=== PATIENT | female | born 1975 ===

== ENCOUNTER 2016-11-13 13:35 | Observation (INO) | payer MEDICAID ==
[2016-11-13 13:56] VITALS: BMI 29.1
[2016-11-13] MEDS ORDERED: Sodium Chloride 0.9% 1,000 ML IV STA (14:33)
[2016-11-13] MEDS ORDERED: Morphine 2 mg/ml ISec IVP STA (14:35)
[2016-11-13 14:57] LABS: URINE BILIRUBIN NEGATIVE (NEGATIVE); URINE BLOOD MODERATE (NEGATIVE); URINE GLUCOSE (UA) NEGATIVE (NEGATIVE); URINE KETONE NEGATIVE (NEGATIVE); URINE LEUKOCYTE ESTERASE NEGATIVE Leu/uL (NEGATIVE); URINE PROTEIN NEGATIVE mg/dL (<30 mg/dL); URINE UROBILINOGEN 0.2 E.U./dL (<1 E.U./dL)
--- NOTE | 2016-11-13 14:59 | ED PDOC ---
Arrival/HPI - General Chief Complaint: Abdominal Pain Time Seen by Provider: 11/13/16 14:07 Historian: Patient - History of Present Illness Narrative History of Present Illness (Text): 11/13/16 14:24 Vani Ornelas is a 41 year old female, whose past medical history includes kidney stones, ovarian cysts, cholecystitis, and tubal ligation, who presents to the emergency department complaining of worsening abdominal pain and left-sided flank pain for 3 days. Patient states that she began to vomit three days ago which resolved until yesterday more frequently. Patient also notes that she began to experience diarrhea 2 days ago and feels pressure in her abdomen while urinating dark colored urine with an odor. At present, most of the Patient's symptoms have resolved but her abdominal and right-sided flank pain remains. Patient denies any fever, chills, chest pain, shortness of breath , neck pain, headache, dizziness, or any other complaints. LMP ws 2 weeks ago. PMD: None Time/Duration: < week Symptom Onset: Gradual Symptom Course: Worsening Severity Level: Mild Activities at Onset: Light Context: Home Past Medical History - Provider Review Nursing Documentation Reviewed: Yes - Infectious Disease Hx of Infectious Diseases: None - Tetanus Immunization Tetanus Immunization: Unknown - Cardiac Hx Cardiac Disorders: Yes Hx Angina: Yes (once, was given sublingual nitro x2 which helped her, EKG normal .) - Pulmonary Hx Respiratory Disorders: Yes Hx Asthma: Yes - Neurological Hx Neurological Disorder: No - HEENT Hx HEENT Disorder: No - Renal Hx Renal Disorder: Yes Hx Kidney Stones: Yes - Endocrine/Metabolic Hx Endocrine Disorders: No - Hematological/Oncological Hx Blood Disorders: Yes Hx Cancer: Yes (stage I cervial cancer - 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 _ cervical 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 ) Other/Comment: Does not appear to be cervical CA but dysplasia - Integumentary Hx Dermatological Disorder: No Hx Basal Cell Carcinoma: No - Musculoskeletal/Rheumatological Hx Musculoskeletal Disorders: No Hx Falls: No - Gastrointestinal Hx Gastrointestinal Disorders: No - Genitourinary/Gynecological Hx Genitourinary Disorders: Yes Other/Comment: ovarian cyst HX - CAT scan done this admission - Psychiatric Hx Psychophysiologic Disorder: Yes Hx Depression: Yes Hx Substance Use: No - Surgical History Hx Cholecystectomy: Yes (2006) Hx Tubal Ligation: Yes - Anesthesia Hx Anesthesia: Yes Hx Anesthesia Reactions: No - Suicidal Assessment Feels Threatened In Home Enviroment: No Family/Social History - Physician Review Nursing Documentation Reviewed: Yes Family/Social History: No Known Family HX Smoking Status: Never Smoked Hx Alcohol Use: No Hx Substance Use: No Hx Substance Use Treatment: No Allergies/Home Meds Allergies/Adverse Reactions: Allergies carisoprodol [From Soma] Allergy (Verified 11/13/16 13:57) ANAPHYLAXIS "swelling and throat closes" hydrocodone bitartrate [From Vicodin] Allergy (Verified 11/13/16 13:57) REDNESS Benadryl [from Soma] Allergy (Uncoded 11/13/16 13:57) RASH Sudafed [from Soma] Allergy (Uncoded 11/13/16 13:57) RASH Review of Systems - Physician Review All systems were reviewed & negative as marked: Yes - Review of Systems Constitutional: absent: Fevers, Night Sweats Eyes: absent: Vision Changes ENT: absent: Hearing Changes Respiratory: absent: SOB, Cough Cardiovascular: absent: Chest Pain Gastrointestinal: Abdominal Pain, Diarrhea, Nausea, Vomiting Genitourinary Female: Urine Output Changes Musculoskeletal: Back Pain Skin: absent: Rash, Pruritis Neurological: absent: Headache, Dizziness Endocrine: absent: Diaphoresis Hemo/Lymphatic: absent: Easy Bleeding Psychiatric: absent: Depression Physical Exam Vital Signs Reviewed: Yes Vital Signs Temp Pulse Resp BP Pulse Ox 11/13/16 17:46 98.7 F 61 18 123/76 99 11/13/16 13:57 98.8 F 79 16 125/86 99 Temperature: Afebrile Blood Pressure: Normal Pulse: Regular Respiratory Rate: Normal Appearance: Positive for: Well-Appearing, Non-Toxic, Uncomfortable (due to pain) Pain Distress: Mild Mental Status: Positive for: Alert and Oriented X 3 - Systems Exam Head: Present: Atraumatic, Normocephalic Pupils: Present: PERRL Conjunctiva: Present: Normal Mouth: Present: Moist Mucous Membranes Pharnyx: Present: Normal. No: ERYTHEMA, EXUDATE Neck: Present: Normal Range of Motion Respiratory/Chest: Present: Clear to Auscultation, Good Air Exchange. No: Respiratory Distress, Accessory Muscle Use Cardiovascular: Present: Regular Rate and Rhythm, Normal S1, S2. No: Murmurs Abdomen: Present: Tenderness (LLQ and LUQ tender to palpation ) Back: Present: CVA Tenderness (left-sided) Upper Extremity: Present: Normal Inspection. No: Cyanosis, Edema Lower Extremity: Present: Normal Inspection. No: Edema Neurological: Present: GCS=15, CN II-XII Intact, Speech Normal Skin: Present: Warm, Dry, Normal Color. No: Rashes Psychiatric: Present: Alert, Oriented x 3, Normal Insight, Normal Concentration Medical Decision Making ED Course and Treatment: 11/13/16 14:24 Impression: 41 year old female complaining of worsening abdominal pain and right-sided flank pain with associated vomiting for 3 days and diarrhea for 2 days. Differential Diagnosis included but are not limited to: Kidney stones vs. Pyelonephritis vs. Gastroenteritis vs. Colitis vs. Pancreatitis Plan: -- Abdomen and Pelvis CT w/o contrast -- Labs -- Pepcid, Toradol, Morphine, Zofran and IV Fluids -- Reassess and disposition Prior Visits: Notes and results from previous visits were reviewed. Patient last seen in the ED on 04/16/16 for increasing lower abdominal pain with radiation to her back for four days. Patient was discharged home. Progress Notes: 11/13/16 18:[address]: Creator : Dania Cui MD FINDINGS: There is limited evaluation of the solid organs without the administration of IV contrast. LOWER THORAX:No visible consolidation, pleural effusion, or pneumothorax. LIVER:Unremarkable unenhanced appearance. GALLBLADDER AND BILE DUCTS:Cholecystectomy. PANCREAS:Unremarkable unenhanced appearance. SPLEEN:Unremarkable unenhanced appearance. ADRENALS:Unremarkable unenhanced appearance. KIDNEYS AND URETERS:No hydronephrosis or obstructing renal calculus. BLADDER:The urinary bladder appears unremarkable. REPRODUCTIVE:Uterus is present. APPENDIX:The appendix appears within normal limits of caliber. No secondary signs of acute appendicitis. BOWEL:The stomach is nondistended. Lack of oral contrast limits evaluation for bowel pathology. The bowel loops appear within normal limits of caliber without evidence of intestinal obstruction. PERITONEUM:No significant free fluid. No definite free air. LYMPH NODES:No bulky lymphadenopathy identified. VASCULATURE:No aortic aneurysm. BONES:No acute osseous abnormality is detected. OTHER FINDINGS:Small fat containing umbilical hernia. IMPRESSION: No acute findings. Cholecystectomy clips. Additional findings as above. 11/13/16 18:36 Patient with unremarkable blood work. Urine shows RBCs, but she reports her menses was [address] shows no evidence of renal stone. Patient says she is still uncomfortable. Given that she has urinary symptoms, will treat for UTI/pyelonephritis and do bimanual exam. 11/13/16 19:15 Bimanual Pelvic exam performed, found left adnexal tenderness. Chaperoned by Mandie Moffett RN. Will rule-out Ovarian Torsion by Ultrasound. 11/13/16 21:50 Sono done showing R ovarian cyst with normal doppler flow on the right but left ovary is not visualized due to gas. Patient continues to be in pain despite toradol, morphine, and ultracet. Patient will need to be observed further given her intractable abd pain. Given non visualization of the left ovary, she will need a repeat pelvic ultrasound to confirm no torsion of the left ovary. Will add lactic acid level. Case discussed with Dr. Roman for placement on the hospitalist's service. - Lab Interpretations Lab Results: 11/13/16 15:00 11/13/16 15:42 Lab Results 11/13/16 15:42: Sodium 138, Potassium 3.7, Chloride 106, Carbon Dioxide 27, Anion Gap 9 L, BUN 7, Creatinine 0.5, Est GFR ( Amer) > 60, Est GFR (Non- Af Amer) > 60, Random Glucose 79, Calcium 8.2 L, Total Bilirubin 0.3, AST 18, ALT 30, Alkaline Phosphatase 71, Total Protein 6.3, Albumin 3.4, Globulin 3.0, Albumin/Globulin Ratio 1.1, Amylase 63, Lipase 43 11/13/16 15:00: PT 10.6, INR 0.98, APTT 25.1 11/13/16 15:00: WBC 7.4 D, RBC 4.44, Hgb 12.6, Hct 37.6, MCV 84.7, MCH 28.4, MCHC 33.5, RDW 12.6, Plt Count 300, MPV 8.9, Gran % 65.2, Lymph % (Auto) 26.8, [place] % (Auto) 6.6 H, Eos % (Auto) 1.1 L, Baso % (Auto) 0.3, Gran # 4.83, Lymph # 2.0, [place] # 0.5, Eos # 0.1, Baso # 0.02 11/13/16 14:35: Urine Color Yellow, Urine Appearance Clear, Urine pH 7.0, Ur Specific [place] 1.020, Urine Protein Negative, Urine Glucose (UA) Negative, Urine Ketones Negative, Urine Blood Moderate H, Urine Nitrate Negative, Urine Bilirubin Negative, Urine Urobilinogen 0.2, Ur Leukocyte Esterase Negative, Urine RBC 10 - 15, Urine WBC 0 - 2, Ur Epithelial Cells 6 - 8, Amorphous Sediment Few, Urine Bacteria Many, Urine HCG, Qual Negative I have reviewed the lab results: Yes - RAD Interpretation Radiology Orders: 11/13/16 14:33 ABD & PELVIS W/O PO OR IV CONT [CT] Stat 11/13/16 19:08 TRANSVAGINAL [US] Stat - Medication Orders Current Medication Orders: Discontinued Medications Famotidine (Pepcid) 20 mg IVP STAT STA Stop: 11/13/16 14:34 Last Admin: 11/13/16 14:51 Dose: 20 mg Sodium Chloride (Sodium Chloride 0.9%) 1,000 mls @ 1,000 mls/hr IV .Q1H STA Stop: 11/13/16 15:32 Last Admin: 11/13/16 14:50 Dose: 1,000 mls/hr Ceftriaxone Sodium (Rocephin 1 Gram Ivpb) 1 gm in 100 mls @ 200 mls/hr IV ONCE STA PRN Reason: Protocol Stop: 11/13/16 19:02 Last Admin: 11/13/16 18:59 Dose: 200 mls/hr Ketorolac Tromethamine (Toradol) 30 mg IVP STAT STA Stop: 11/13/16 14:34 Last Admin: 11/13/16 14:52 Dose: 30 mg Re-Assess: BANNER Pain Assessment Document 11/13/16 15:52 JOL (Rec: 11/13/16 19:00 JOL [id number]) Pain Reassessment Is this a pain reassessment? Yes Sleep Is patient sleeping during reassessment? No Presence of Pain Presence of Pain No Morphine Sulfate (Morphine) 2 mg IVP STAT STA Stop: 11/13/16 14:36 Last Admin: 11/13/16 14:51 Dose: 2 mg Re-Assess: BANNER Pain Assessment Document 11/13/16 15:51 JOL (Rec: 11/13/16 19:00 JOL [id number]) Pain Reassessment Is this a pain reassessment? Yes Sleep Is patient sleeping during reassessment? No Presence of Pain Presence of Pain No Ondansetron HCl (Zofran Inj) 4 mg IVP STAT STA Stop: 11/13/16 14:34 Last Admin: 11/13/16 14:52 Dose: 4 mg Tramadol/Acetaminophen (Ultracet 37.5/325 Mg) 2 tab PO STAT STA Stop: 11/13/16 18:34 Last Admin: 11/13/16 18:59 Dose: 2 tab - Scribe Statement The provider has reviewed the documentation as recorded by the Akuaibe Sandra Fernandez Provider Scribe Attestation: All medical record entries made by the Audie were at my direction and personally dictated by me. I have reviewed the chart and agree that the record accurately reflects my personal performance of the history, physical exam, medical decision making, and the department course for this patient. I have also personally directed, reviewed, and agree with the discharge instructions and disposition. Disposition/Present on Arrival - Present on Arrival Any Indicators Present on Arrival: No History of DVT/PE: No History of Uncontrolled Diabetes: No Urinary Catheter: No History of Decub. Ulcer: No History Surgical Site Infection Following: None - Disposition Have Diagnosis and Disposition been Completed?: Yes Diagnosis: Abdominal pain, Urinary tract infection Disposition: HOSPITALIZED Disposition Time: 21:45 Patient Plan: Observation Patient Problems: Current Active Problems Problem Status Onset Abdominal pain Acute Urinary tract infection Acute Condition: FAIR Discharge Instructions (ExitCare): Urinary Tract Infection in Women (ED)
[2016-11-13 15:00] LABS: URINE APPEARANCE CLEAR (CLEAR); URINE COLOR YELLOW (YELLOW)
[2016-11-13 15:05] LABS: URINE AMORPHOUS SEDIMENT FEW; URINE BACTERIA MANY (NEG); URINE WBC 0 - 2 /hpf (0-6)
[2016-11-13 15:08] LABS: ADD MANUAL DIFF? NO
[2016-11-13 15:11] LABS: BASO # 0.02 K/mm3 (0.0-2.0); BASO % 0.3 % (0.0-3.0); EOS # 0.1 (0.0-0.7); EOS % 1.1 % (1.5-5.0); GRAN # 4.83 (1.4-6.5); GRAN % 65.2 % (50.0-68.0); HEMATOCRIT 37.6 % (36.0-48.0); LYMPH % 26.8 % (22.0-35.0); MEAN CELL VOLUME 84.7 fL (80.0-105.0); MEAN CORPUSCULAR HEMOGLOBIN 28.4 pg (25.0-35.0); MEAN CORPUSCULAR HGB CONC 33.5 g/dl (31.0-37.0); MEAN PLATELET VOLUME 8.9 fl (7.0-11.0); MONO # 0.5 (0.1-0.6); MONO % 6.6 % (1.0-6.0); PLATELET COUNT 300 10^3/uL (120.0-450.0); RED CELL DISTRIBUTION WIDTH 12.6 % (11.5-14.5); WHITE BLOOD COUNT 7.4 10^3/ul (4.5-11.0)
[2016-11-13 15:27] LABS: INR 0.98 (0.93-1.08); PARTIAL THROMBOPLASTIN TIME 25.1 Seconds (23.7-30.8)
[2016-11-13 15:54] LABS: ALB/GLOB RATIO 1.1 (1.1-1.8); ALKALINE PHOSPHATASE 71 U/L (38-133); ALT/SGPT 30 U/L (7-56); AMYLASE 63 U/L (35-125); AST/SGOT 18 U/L (15-39); BILIRUBIN,TOTAL 0.3 mg/dL (0.2-1.3); BLOOD UREA NITROGEN 7 mg/dL (7-21); CALCIUM 8.2 mg/dL (8.4-10.5); CARBON DIOXIDE 27 mmol/L (21-33); CHLORIDE 106 mmol/L (98-107); GFR AFRICAN-AMERICAN > 60; GLUCOSE,RANDOM 79 mg/dL (70-110); LIPASE 43 U/L (23-300); POTASSIUM 3.7 mmol/L (3.6-5.0); SODIUM 138 mmol/L (132-148); TOTAL PROTEIN 6.3 g/dL (5.8-8.3)
--- NOTE | 2016-11-13 17:15 | CT ---
PROCEDURE: CT Abdomen and Pelvis without Oral or IV contrast. HISTORY: L side abd pain, L flank pain COMPARISON: CT abdomen and pelvis without contrast performed 11/22/15 TECHNIQUE: Contiguous axial images of the abdomen and pelvis. No oral or IV contrast administered. Coronal and Sagittal reformats generated and reviewed. Radiation dose: Total exam DLP = 609.74 mGy-cm. This CT exam was performed using one or more of the following dose reduction techniques: Automated exposure control, adjustment of the mA and/or kV according to patient size, and/or use of iterative reconstruction technique. FINDINGS: There is limited evaluation of the solid organs without the administration of IV contrast. LOWER THORAX: No visible consolidation, pleural effusion, or pneumothorax. LIVER: Unremarkable unenhanced appearance. GALLBLADDER AND BILE DUCTS: Cholecystectomy. PANCREAS: Unremarkable unenhanced appearance. SPLEEN: Unremarkable unenhanced appearance. ADRENALS: Unremarkable unenhanced appearance. KIDNEYS AND URETERS: No hydronephrosis or obstructing renal calculus. BLADDER: The urinary bladder appears unremarkable. REPRODUCTIVE: Uterus is present. APPENDIX: The appendix appears within normal limits of caliber. No secondary signs of acute appendicitis. BOWEL: The stomach is nondistended. Lack of oral contrast limits evaluation for bowel pathology. The bowel loops appear within normal limits of caliber without evidence of intestinal obstruction. PERITONEUM: No significant free fluid. No definite free air. LYMPH NODES: No bulky lymphadenopathy identified. VASCULATURE: No aortic aneurysm. BONES: No acute osseous abnormality is detected. OTHER FINDINGS: Small fat containing umbilical hernia. IMPRESSION: No acute findings. Cholecystectomy clips. Additional findings as above.
[2016-11-13] MEDS ORDERED: cefTRIAXone 1 gm 1 GM/100 ML BAG IV STA (18:33)
[2016-11-13] MEDS ORDERED: TraMADol/Apap 37.5/325 mg Tab PO STA (18:33)
--- NOTE | 2016-11-13 21:18 | US ---
EXAM: US Pelvis, Transvaginal CLINICAL HISTORY: 41 years old, female; Pain; Pelvic pain; Additional info: Pelvic pain - R/O torsion TECHNIQUE: Real-time transvaginal pelvic ultrasound (complete) with image documentation. Transvaginal imaging was used for better evaluation of the endometrium and adnexa. EXAM DATE/TIME: 11/13/2016 7:08 PM COMPARISON: Prior CT abdomen and pelvis of 11/13/2016 FINDINGS: Uterus: Measures 8 x 5 x 5.4 cm. Endometrial stripe does not appear abnormally thickened, measuring 1 cm. Right ovary: Measures 2.2 x 1.8 x 2.1 cm, and contains a small cystic lesion measuring 1.8 x 1.7 x 1.3 cm. This contains a single, thin septation, measuring 1 mm. No followup is warranted based on the imaging findings, unless otherwise clinically indicated. Flow seen in the right ovary on color and Doppler imaging, with no evidence of torsion. Left ovary: Could not be visualized, secondary to bowel gas. Cul-de-sac: No free fluid. IMPRESSION: Nonvisualization of the left ovary. Small 1.8 cm cystic lesion in the right ovary, as described. Otherwise negative exam. No evidence of right ovarian torsion, free fluid, or other acute abnormality. See above for remaining findings.
[2016-11-13] MEDS ORDERED: Albuterol-Ipratrop 3 mg / 0.5 (3 ml) UD IH PRN (22:57)
[2016-11-13] MEDS: Morphine 2 mg/ml ISec IVP PRN (23:16)
[2016-11-14] MEDS: Morphine 2 mg/ml ISec IVP PRN ×2 (05:34→09:13)
[2016-11-14 07:23] LABS: ADD MANUAL DIFF? NO
[2016-11-14 07:29] LABS: BASO # 0.01 K/mm3 (0.0-2.0); BASO % 0.2 % (0.0-3.0); EOS # 0.1 (0.0-0.7); EOS % 1.7 % (1.5-5.0); GRAN # 3.27 (1.4-6.5); GRAN % 55.2 % (50.0-68.0); HEMATOCRIT 35.9 % (36.0-48.0); LYMPH # 2.1 (1.2-3.4); LYMPH % 34.9 % (22.0-35.0); MEAN CELL VOLUME 84.7 fL (80.0-105.0); MEAN CORPUSCULAR HEMOGLOBIN 27.8 pg (25.0-35.0); MEAN CORPUSCULAR HGB CONC 32.9 g/dl (31.0-37.0); MONO # 0.5 (0.1-0.6); PLATELET COUNT 275 10^3/uL (120.0-450.0); RED CELL DISTRIBUTION WIDTH 12.7 % (11.5-14.5); WHITE BLOOD COUNT 5.9 10^3/ul (4.5-11.0)
--- NOTE | 2016-11-14 07:36 | CP.PCM.HP ---
<Peyton Jeffrey - Last Filed: 11/14/16 07:32> History of Present Illness - History of Present Illness History of Present Illness: PGY-1 h&P 41 yo female with PMH of kidney stones, ovarian cyst, asthma, cervical dysplasia s/p cryotherapy, cholecystectomy presents to ED with worsening abd and flank pain. Patient states that the pain started 3 days ago, mostly on the left side radiating to the back. Patient states that four days ago she had nausea, vomiting and diarrhea. The diarrhea improved however the vomiting continued to worsen. She tried taking pepto-bismol but it did not helped. She also reports increase in urinary frequency, and increase pressure with urination. Patient states that she has had similar symptoms in the past due to kidney stones,however her current symptoms are worse. She denies any sick contacts. She denies any fever, chills, chest pain, sob. PMH: kidney stones, ovarian cyst, asthma, cervical dysplasia s/p cryotherapy, PSH: cholecystectomy, Tubal ligation social hx: denies smoking, social alcohol use, denies illicit drug use fam hx: mother- uterine and ovarian cancer, DM, father- HTN allergy: soma home meds: albuterol inhaler, singular Present on Admission - Present on Admission Any Indicators Present on Admission: No Review of Systems - Constitutional Constitutional: absent: Chills, Fever - EENT Nose/Mouth/Throat: absent: Nasal Congestion, Sore Throat - Cardiovascular Cardiovascular: absent: Chest Pain, Dyspnea, Leg Edema, Palpitations - Gastrointestinal Gastrointestinal: Abdominal Pain, Diarrhea, Nausea, Vomiting. absent: Constipation - Genitourinary Genitourinary: Flank Pain, Urinary Frequency Additional comments: pressure with urination - Musculoskeletal Musculoskeletal: absent: Arthralgias, Myalgias, Numbness, Tingling - Integumentary Integumentary: absent: Rash, Skin Ulcer, Wounds - Hematologic/Lymphatic Hematologic: absent: Easy Bleeding, Easy Bruising Past Patient History - Infectious Disease Hx of Infectious Diseases: None - Tetanus Immunizations Tetanus Immunization: Unknown - Past Medical History & Family History Past Medical History?: Yes - Past Social History Smoking Status: Never Smoked Alcohol: Social Drugs: Denies - CARDIAC Hx Cardiac Disorders: Yes Hx Angina: Yes (once, was given sublingual nitro x2 which helped her, EKG normal .) - PULMONARY Hx Asthma: Yes - NEUROLOGICAL Hx Neurological Disorder: No - HEENT Hx HEENT Problems: No - RENAL Hx Chronic Kidney Disease: Yes Hx Kidney Stones: Yes - ENDOCRINE/METABOLIC Hx Endocrine Disorders: No - HEMATOLOGICAL/ONCOLOGICAL Hx Blood Disorders: Yes Hx Cancer: Yes (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 _ cervical 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 ) Other/Comment: Does not appear to be cervical CA but dysplasia - INTEGUMENTARY Hx Dermatological Problems: No Hx Basil Cell: No - MUSCULOSKELETAL/RHEUMATOLOGICAL Hx Falls: No - GASTROINTESTINAL Hx Gastrointestinal Disorders: No - GENITOURINARY/GYNECOLOGICAL Hx Genitourinary Disorders: Yes Other/Comment: ovarian cyst HX - CAT scan done this admission - PSYCHIATRIC Hx Substance Use: No - SURGICAL HISTORY Hx Cholecystectomy: Yes (2006) Hx Tubal Ligation: Yes - ANESTHESIA Hx Anesthesia: Yes Hx Anesthesia Reactions: No Meds Home Medications: Home Medication List Medication Instructions Recorded Confirmed Type Montelukast [Singulair] 10 mg PO HS #30 tab 11/14/16 Rx Allergies/Adverse Reactions: Allergies Allergy/AdvReac Type Severity Reaction Status Date / Time carisoprodol [From Soma] Allergy ANAPHYLAXIS Verified 11/13/16 13:57 hydrocodone bitartrate Allergy REDNESS Verified 11/13/16 13:57 [From Vicodin] Benadryl [from Soma] Allergy RASH Uncoded 11/13/16 13:57 Sudafed [from Soma] Allergy RASH Uncoded 11/13/16 13:57 Physical Exam - Constitutional Appears: Well, No Acute Distress - Head Exam Head Exam: ATRAUMATIC, NORMOCEPHALIC - Eye Exam Eye Exam: Normal appearance - ENT Exam ENT Exam: Mucous Membranes Moist - Respiratory Exam Respiratory Exam: Clear to Auscultation Bilateral, NORMAL BREATHING PATTERN. absent: Rales, Rhonchi, Wheezes, Respiratory Distress - Cardiovascular Exam Cardiovascular Exam: REGULAR RHYTHM, +S1, +S2. absent: Tachycardia, Diastolic murmur, Systolic Murmur - GI/Abdominal Exam GI & Abdominal Exam: Normal Bowel Sounds, Soft, Tenderness (left sided). absent : Distended, Firm, Guarding - Extremities Exam Extremities exam: Positive for: normal inspection. Negative for: pedal edema - Back Exam Back exam: CVA tenderness (L) - Neurological Exam Neurological exam: Alert, Oriented x3 - Skin Skin Exam: Dry, Intact, Normal Color, Warm Results - Vital Signs Recent Vital Signs: Last Vital Signs Temp 98.7 F 11/13/16 17:46 Pulse 70 11/13/16 21:00 Resp 20 11/14/16 02:01 BP 120/69 11/13/16 21:00 Pulse Ox 100 11/13/16 21:00 - Labs Result Diagrams: 11/14/16 07:00 11/13/16 15:42 Labs: Laboratory Results - last 24 hr 11/14/16 11/14/16 00:15 07:00 WBC 5.9 D RBC 4.24 Hgb 11.8 L Hct 35.9 L MCV 84.7 MCH 27.8 MCHC 32.9 RDW 12.7 Plt Count 275 MPV 9.0 Gran % 55.2 Lymph % (Auto) 34.9 [place] % (Auto) 8.0 H Eos % (Auto) 1.7 Baso % (Auto) 0.2 Gran # 3.27 Lymph # 2.1 [place]key # 0.5 Eos # 0.1 Baso # 0.01 Lactic Acid < 0.5 L Assessment & Plan - Assessment and Plan (Free Text) Assessment: 41 yo female with PMH of kidney stones, ovarian cyst, asthma, cervical dysplasia s/p cryotherapy, cholecystectomy presents to ED with worsening abd/ flank pain and vomiting. Plan: 1. abd pain - CT abd no acute findings - transvaginal US showed small cyst on Right ovary, could not visualize left ovary - pain management - consider repeating US to visualized left ovary 2. vomiting - zofran prn 3. asthma - cont home med albuterol prn, singular ppx GI- protonix DVT- SCDs <Connie Roman - Last Filed: 11/14/16 19:19> Results - Vital Signs Recent Vital Signs: Last Vital Signs Temp 98.1 F 11/14/16 07:46 Pulse 56 L 11/14/16 07:46 Resp 20 11/14/16 07:46 BP 100/47 L 11/14/16 07:46 Pulse Ox 96 11/14/16 07:46 - Labs Result Diagrams: 11/14/16 07:00 11/14/16 07:00 Labs: Laboratory Results - last 24 hr 11/14/16 11/14/16 11/14/16 00:15 07:00 07:00 WBC 5.9 D RBC 4.24 Hgb 11.8 L Hct 35.9 L MCV 84.7 MCH 27.8 MCHC 32.9 RDW 12.7 Plt Count 275 MPV 9.0 Gran % 55.2 Lymph % (Auto) 34.9 [place] % (Auto) 8.0 H Eos % (Auto) 1.7 Baso % (Auto) 0.2 Gran # 3.27 Lymph # 2.1 Sharkey # 0.5 Eos # 0.1 Baso # 0.01 Sodium 138 Potassium 4.0 Chloride 105 Carbon Dioxide 27 Anion Gap 10 BUN 9 Creatinine 0.6 Est GFR ( Amer) > 60 Est GFR (Non-Af Amer) > 60 Random Glucose 84 Lactic Acid < 0.5 L Calcium 8.7 Total Bilirubin 0.4 AST 28 ALT 36 Alkaline Phosphatase 70 Total Protein 6.3 Albumin 3.4 Globulin 3.0 Albumin/Globulin Ratio 1.1 Attending/Attestation - Attestation I have personally seen and examined this patient.: Yes I have fully participated in the care of the patient.: Yes I have reviewed all pertinent clinical information: Yes Notes (Text): 11/14/16 19:18 Agree with history , physical examination ,assessment and plan.
[2016-11-14 07:46] LABS: ALB/GLOB RATIO 1.1 (1.1-1.8); ALKALINE PHOSPHATASE 70 U/L (38-133); ALT/SGPT 36 U/L (7-56); AST/SGOT 28 U/L (15-39); BILIRUBIN,TOTAL 0.4 mg/dL (0.2-1.3); BLOOD UREA NITROGEN 9 mg/dL (7-21); CALCIUM 8.7 mg/dL (8.4-10.5); CARBON DIOXIDE 27 mmol/L (21-33); CHLORIDE 105 mmol/L (98-107); GFR AFRICAN-AMERICAN > 60; GLUCOSE,RANDOM 84 mg/dL (70-110); SODIUM 138 mmol/L (132-148); TOTAL PROTEIN 6.3 g/dL (5.8-8.3)
[2016-11-14] MEDS: cefTRIAXone 1 gm 1 GM/100 ML BAG IVPB SCH (16:24)
[2016-11-15 07:39] LABS: ADD MANUAL DIFF? NO
[2016-11-15 07:41] VITALS: BP 117/73; PULSE 50; RESP 18; TEMP 97.7; O2SAT 99
[2016-11-15 08:00] LABS: BASO # 0.03 K/mm3 (0.0-2.0); BASO % 0.3 % (0.0-3.0); EOS # 0.2 (0.0-0.7); EOS % 1.9 % (1.5-5.0); GRAN # 7.35 (1.4-6.5); GRAN % 71.8 % (50.0-68.0); LYMPH # 1.8 (1.2-3.4); LYMPH % 17.9 % (22.0-35.0); MEAN CELL VOLUME 85.6 fL (80.0-105.0); MEAN CORPUSCULAR HEMOGLOBIN 28.6 pg (25.0-35.0); MEAN CORPUSCULAR HGB CONC 33.4 g/dl (31.0-37.0); MONO # 0.8 (0.1-0.6); MONO % 8.1 % (1.0-6.0); PLATELET COUNT 288 10^3/uL (120.0-450.0); RED CELL DISTRIBUTION WIDTH 12.9 % (11.5-14.5); WHITE BLOOD COUNT 10.2 10^3/ul (4.5-11.0)
[2016-11-15 08:11] LABS: ALB/GLOB RATIO 1.1 (1.1-1.8); ALKALINE PHOSPHATASE 87 U/L (38-133); ALT/SGPT 114 U/L (7-56); AST/SGOT 56 U/L (15-39); BILIRUBIN,TOTAL 0.4 mg/dL (0.2-1.3); BLOOD UREA NITROGEN 14 mg/dL (7-21); CALCIUM 8.7 mg/dL (8.4-10.5); CARBON DIOXIDE 27 mmol/L (21-33); CHLORIDE 106 mmol/L (98-107); GFR AFRICAN-AMERICAN > 60; GLUCOSE,RANDOM 86 mg/dL (70-110); POTASSIUM 3.8 mmol/L (3.6-5.0); SODIUM 139 mmol/L (132-148)
[2016-11-15] MEDS: cefTRIAXone 1 gm 1 GM/100 ML BAG IVPB SCH (10:30)
--- NOTE | 2016-11-15 13:07 | CP.PCM.DIS ---
<GauthierRod - Last Filed: 11/15/16 22:29> Provider - Provider Date of Admission: 11/13/16 21:50 Attending physician: Suzie Lama MD Primary care physician: NO PRIMARY CARE PROVIDER Time Spent in preparation of Discharge (in minutes): 35 Hospital Course - Lab Results Lab Results: Most Recent Lab Values WBC 10.2 10^3/ul (4.5-11.0) D 11/15/16 06:45 RBC 4.44 10^6/uL (3.5-6.1) 11/15/16 06:45 Hgb 12.7 gm/dL (12.0-16.0) 11/15/16 06:45 Hct 38.0 % (36.0-48.0) 11/15/16 06:45 MCV 85.6 fL (80.0-105.0) 11/15/16 06:45 MCH 28.6 pg (25.0-35.0) 11/15/16 06:45 MCHC 33.4 g/dl (31.0-37.0) 11/15/16 06:45 RDW 12.9 % (11.5-14.5) 11/15/16 06:45 Plt Count 288 10^3/uL (120.0-450.0) 11/15/16 06:45 MPV 9.0 fl (7.0-11.0) 11/15/16 06:45 Gran % 71.8 % (50.0-68.0) H 11/15/16 06:45 Lymph % (Auto) 17.9 % (22.0-35.0) L 11/15/16 06:45 [place] % (Auto) 8.1 % (1.0-6.0) H 11/15/16 06:45 Eos % (Auto) 1.9 % (1.5-5.0) 11/15/16 06:45 Baso % (Auto) 0.3 % (0.0-3.0) 11/15/16 06:45 Gran # 7.35 (1.4-6.5) H 11/15/16 06:45 Lymph # 1.8 (1.2-3.4) 11/15/16 06:45 [place] # 0.8 (0.1-0.6) H 11/15/16 06:45 Eos # 0.2 (0.0-0.7) 11/15/16 06:45 Baso # 0.03 K/mm3 (0.0-2.0) 11/15/16 06:45 PT 10.6 Seconds (9.9-11.8) 11/13/16 15:00 INR 0.98 (0.93-1.08) 11/13/16 15:00 APTT 25.1 Seconds (23.7-30.8) 11/13/16 15:00 Sodium 139 mmol/L (132-148) 11/15/16 06:45 Potassium 3.8 mmol/L (3.6-5.0) 11/15/16 06:45 Chloride 106 mmol/L (98-107) 11/15/16 06:45 Carbon Dioxide 27 mmol/L (21-33) 11/15/16 06:45 Anion Gap 10 (10-20) 11/15/16 06:45 BUN 14 mg/dL (7-21) 11/15/16 06:45 Creatinine 0.6 mg/dL (0.5-1.4) 11/15/16 06:45 Est GFR ( Amer) > 60 11/15/16 06:45 Est GFR (Non-Af Amer) > 60 11/15/16 06:45 Random Glucose 86 mg/dL (70-110) 11/15/16 06:45 Lactic Acid < 0.5 mmol/L (0.7-2.1) L 11/14/16 00:15 Calcium 8.7 mg/dL (8.4-10.5) 11/15/16 06:45 Total Bilirubin 0.4 mg/dL (0.2-1.3) 11/15/16 06:45 AST 56 U/L (15-39) H 11/15/16 06:45 ALT 114 U/L (7-56) H 11/15/16 06:45 Alkaline Phosphatase 87 U/L (38-133) 11/15/16 06:45 Total Protein 7.0 g/dL (5.8-8.3) 11/15/16 06:45 Albumin 3.7 g/dL (3.0-4.8) 11/15/16 06:45 Globulin 3.3 gm/dL 11/15/16 06:45 Albumin/Globulin Ratio 1.1 (1.1-1.8) 11/15/16 06:45 Amylase 63 U/L (35-125) 11/13/16 15:42 Lipase 43 U/L (23-300) 11/13/16 15:42 Urine Color Yellow (YELLOW) 11/13/16 14:35 Urine Appearance Clear (CLEAR) 11/13/16 14:35 Urine pH 7.0 (4.7-8.0) 11/13/16 14:35 Ur Specific [place] 1.020 (1.005-1.035) 11/13/16 14:35 Urine Protein Negative mg/dL (<30 mg/dL) 11/13/16 14:35 Urine Glucose (UA) Negative mg/dL (NEGATIVE) 11/13/16 14:35 Urine Ketones Negative mg/dL (NEGATIVE) 11/13/16 14:35 Urine Blood Moderate (NEGATIVE) H 11/13/16 14:35 Urine Nitrate Negative (NEGATIVE) 11/13/16 14:35 Urine Bilirubin Negative (NEGATIVE) 11/13/16 14:35 Urine Urobilinogen 0.2 E.U./dL (<1 E.U./dL) 11/13/16 14:35 Ur Leukocyte Esterase Negative Anthony/uL (NEGATIVE) 11/13/16 14:35 Urine RBC 10 - 15 /hpf (0-2) 11/13/16 14:35 Urine WBC 0 - 2 /hpf (0-6) 11/13/16 14:35 Ur Epithelial Cells 6 - 8 /hpf (0-5) 11/13/16 14:35 Amorphous Sediment Few 11/13/16 14:35 Urine Bacteria Many (NEG) 11/13/16 14:35 Urine HCG, Qual Negative (NEGATIVE) 11/13/16 14:35 - Hospital Course Hospital Course: 41 yo female with PMH of kidney stones, ovarian cyst, asthma, cervical dysplasia s/p cryotherapy, cholecystectomy presented to ED with worsening abd and flank pain fro [address] Abdomen/Pelvis did not show any acute findings, with no evidence of hydronephrosis, or obstructing renal calculus. Transvaginal US demonstrated a small cyst on the right ovary and the left ovary could not be visualized. Patient improved overnight and was considered stable to be discharged the following day. She was advised to apply for [facility] care and start services with [facility] for Primary Care and for [facility] and [facility]. This is a brief account of her stay. For more information, please read her chart. - Date & Time of H&P Date of H&P: 11/15/16 Time of H&P: 08:00 Discharge Exam - Head Exam Head Exam: ATRAUMATIC, NORMOCEPHALIC - Neck Exam Neck exam: Full Rom - Respiratory Exam Respiratory Exam: Clear to PA & Lateral, NORMAL BREATHING PATTERN, UNREMARKABLE. absent: Wheezes - Cardiovascular Exam Cardiovascular Exam: REGULAR RHYTHM, RRR, +S1, +S2. absent: JVD - GI/Abdominal Exam GI & Abdominal Exam: Normal Bowel Sounds, Soft, Tenderness (left side) - Extremities Exam Extremities exam: normal inspection - Back Exam Back exam: CVA tenderness (L), tenderness. absent: CVA tenderness (R), paraspinal tenderness, rash noted - Neurological Exam Neurological exam: Alert, CN II-XII Intact, Oriented x3 - Psychiatric Exam Psychiatric exam: Normal Affect, Normal Mood - Skin Skin Exam: Dry, Intact, Normal Color, Warm Discharge Plan - Discharge Medications Prescriptions: Ciprofloxacin HCl [Cipro] 500 mg PO BID #10 tab Ibuprofen [Motrin Ib] 400 mg PO BID #6 tablet Montelukast [Singulair] 10 mg PO HS #30 tab - Follow Up Plan Condition: FAIR Disposition: HOME/ ROUTINE Instructions: Urinary Tract Infection in Women (DC), Urinary Tract Infection in Men (DC), Acute Abdominal Pain (DC), Acute Abdominal Pain (GEN), Dysuria (GEN ) Additional Instructions: Patient is medically stable for discharge. Please fill all of your prescriptions, including Ciprofloxacin 500mg twice daily for 5 days. Please follow up with your [facility] application. Please follow up with a primary care clinic at [facility] Follow up with DR. Gregory lowe urology in 1 week. Please follow up with at either [facility]: [facility] [phone] or [place] [phone] Thank you for allowing us to take part in your care. Referrals: PCP,NO [Primary Care Provider] - Gregory Lowe MD [Staff Provider] - <Suzie Lama - Last Filed: 11/16/16 14:47> Provider - Provider Date of Admission: 11/13/16 21:50 Attending physician: Suzie Lama MD Primary care physician: NO PRIMARY CARE PROVIDER Hospital Course - Lab Results Lab Results: Micro Results 11/14/16 14:36 Urine,Clean Catch Urine Culture - Final No Growth (<1,000 CFU/ML) Most Recent Lab Values WBC 10.2 10^3/ul (4.5-11.0) D 11/15/16 06:45 RBC 4.44 10^6/uL (3.5-6.1) 11/15/16 06:45 Hgb 12.7 gm/dL (12.0-16.0) 11/15/16 06:45 Hct 38.0 % (36.0-48.0) 11/15/16 06:45 MCV 85.6 fL (80.0-105.0) 11/15/16 06:45 MCH 28.6 pg (25.0-35.0) 11/15/16 06:45 MCHC 33.4 g/dl (31.0-37.0) 11/15/16 06:45 RDW 12.9 % (11.5-14.5) 11/15/16 06:45 Plt Count 288 10^3/uL (120.0-450.0) 11/15/16 06:45 MPV 9.0 fl (7.0-11.0) 11/15/16 06:45 Gran % 71.8 % (50.0-68.0) H 11/15/16 06:45 Lymph % (Auto) 17.9 % (22.0-35.0) L 11/15/16 06:45 [place] % (Auto) 8.1 % (1.0-6.0) H 11/15/16 06:45 Eos % (Auto) 1.9 % (1.5-5.0) 11/15/16 06:45 Baso % (Auto) 0.3 % (0.0-3.0) 11/15/16 06:45 Gran # 7.35 (1.4-6.5) H 11/15/16 06:45 Lymph # 1.8 (1.2-3.4) 11/15/16 06:45 [place] # 0.8 (0.1-0.6) H 11/15/16 06:45 Eos # 0.2 (0.0-0.7) 11/15/16 06:45 Baso # 0.03 K/mm3 (0.0-2.0) 11/15/16 06:45 PT 10.6 Seconds (9.9-11.8) 11/13/16 15:00 INR 0.98 (0.93-1.08) 11/13/16 15:00 APTT 25.1 Seconds (23.7-30.8) 11/13/16 15:00 Sodium 139 mmol/L (132-148) 11/15/16 06:45 Potassium 3.8 mmol/L (3.6-5.0) 11/15/16 06:45 Chloride 106 mmol/L (98-107) 11/15/16 06:45 Carbon Dioxide 27 mmol/L (21-33) 11/15/16 06:45 Anion Gap 10 (10-20) 11/15/16 06:45 BUN 14 mg/dL (7-21) 11/15/16 06:45 Creatinine 0.6 mg/dL (0.5-1.4) 11/15/16 06:45 Est GFR ( Amer) > 60 11/15/16 06:45 Est GFR (Non-Af Amer) > 60 11/15/16 06:45 Random Glucose 86 mg/dL (70-110) 11/15/16 06:45 Lactic Acid < 0.5 mmol/L (0.7-2.1) L 11/14/16 00:15 Calcium 8.7 mg/dL (8.4-10.5) 11/15/16 06:45 Total Bilirubin 0.4 mg/dL (0.2-1.3) 11/15/16 06:45 AST 56 U/L (15-39) H 11/15/16 06:45 ALT 114 U/L (7-56) H 11/15/16 06:45 Alkaline Phosphatase 87 U/L (38-133) 11/15/16 06:45 Total Protein 7.0 g/dL (5.8-8.3) 11/15/16 06:45 Albumin 3.7 g/dL (3.0-4.8) 11/15/16 06:45 Globulin 3.3 gm/dL 11/15/16 06:45 Albumin/Globulin Ratio 1.1 (1.1-1.8) 11/15/16 06:45 Amylase 63 U/L (35-125) 11/13/16 15:42 Lipase 43 U/L (23-300) 11/13/16 15:42 Urine Color Yellow (YELLOW) 11/13/16 14:35 Urine Appearance Clear (CLEAR) 11/13/16 14:35 Urine pH 7.0 (4.7-8.0) 11/13/16 14:35 Ur Specific [place] 1.020 (1.005-1.035) 11/13/16 14:35 Urine Protein Negative mg/dL (<30 mg/dL) 11/13/16 14:35 Urine Glucose (UA) Negative mg/dL (NEGATIVE) 11/13/16 14:35 Urine Ketones Negative mg/dL (NEGATIVE) 11/13/16 14:35 Urine Blood Moderate (NEGATIVE) H 11/13/16 14:35 Urine Nitrate Negative (NEGATIVE) 11/13/16 14:35 Urine Bilirubin Negative (NEGATIVE) 11/13/16 14:35 Urine Urobilinogen 0.2 E.U./dL (<1 E.U./dL) 11/13/16 14:35 Ur Leukocyte Esterase Negative Anthony/uL (NEGATIVE) 11/13/16 14:35 Urine RBC 10 - 15 /hpf (0-2) 11/13/16 14:35 Urine WBC 0 - 2 /hpf (0-6) 11/13/16 14:35 Ur Epithelial Cells 6 - 8 /hpf (0-5) 11/13/16 14:35 Amorphous Sediment Few 11/13/16 14:35 Urine Bacteria Many (NEG) 11/13/16 14:35 Urine HCG, Qual Negative (NEGATIVE) 11/13/16 14:35 Attending/Attestation - Attestation I have personally seen and examined this patient.: Yes I have fully participated in the care of the patient.: Yes I have reviewed all pertinent clinical information, including history, physical exam and plan: Yes Notes (Text): 11/16/16 14:44 attending note; Patient seen and examined with resident. Patient is a 41-year-old female with a history of questionable kidney stones, ovarian cyst, colposcopy treatment for cervical dysplasia is admitted with left flank pain and urinary symptoms. CT is negative for any renal stones or hydronephrosis. Transvaginal ultrasound showed right ovarian cyst and left ovary not visualized. Admitted and treated with IV fluids and IV Toradol. UA is positive for RBCs. Urine culture is negative. Patient will be discharged home with close follow-up with urology/[facility] as outpatient. Patient moved to [place] recently. Advised to complete [employer] Paperwork for follow-up with outpatient clinic. Diagnosis; Abdominal pain History of ovarian cyst Cervical dysplasia
== END 2016-11-15 14:41 | disposition home or self-care (01) ==
LOC: ED 13:35 → ERH 21:50 → 3RNO 11-14 00:02
PROVIDERS: ADMIT Internal Medicine; ATTEND Internal Medicine
DX: R10.9 Unspecified abdominal pain (principal); N83.201 Unspecified ovarian cyst, right side; N87.9 Dysplasia of cervix uteri, unspecified; J45.909 Unspecified asthma, uncomplicated; R11.10 Vomiting, unspecified; Z87.410 Personal history of cervical dysplasia; Z90.49 Acquired absence of other specified parts of digestive tract; Z87.442 Personal history of urinary calculi
CPT/HCPCS: 36415; 74176; 76830; 80053; 81001; 82150; 83605; 83690; 84703; 85025; 85610; 85730; 87086; 96361; 96365; 96366; 96375; 96376; 99284; C9113; G0378; J0696; J1885; J2270; J2405; J7040

== ENCOUNTER 2017-07-27 13:48 | Emergency (ER) | payer MEDICAID, OTHER ==
[2017-07-27 13:48] VITALS: BMI 29.1
[2017-07-27] MEDS ORDERED: Promethazine 6.25 MG/5 ML CUP PO STA (14:41)
--- NOTE | 2017-07-27 14:52 | ED PDOC ---
Arrival/HPI - General Chief Complaint: Flu-like Symptoms Time Seen by Provider: 07/27/17 14:22 Historian: Patient - History of Present Illness Narrative History of Present Illness (Text): 07/27/17 14:49 42yo female with PMHx of Kidney stone who present with complaint of greenish productive cough, generalized bodyache and subjective fever x 4days. States she started having ribs pain with cough today. Also reports lower abdominal pain and pressure with urination x 5days. States symptoms is similar to her previous symptoms with kidney stone. States urinary is dark. Denies urinary frequency, urgency, hematuria, nausea, vomiting, diarrhea, constipation, any other complaint. 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 ) Other/Comment: Does not appear to be cervical CA but dysplasia - Integumentary Hx Dermatological Disorder: No Hx Basal Cell Carcinoma: No - Musculoskeletal/Rheumatological Hx Falls: No - Gastrointestinal Hx Gastrointestinal Disorders: No - Genitourinary/Gynecological Hx Genitourinary Disorders: Yes Other/Comment: ovarian cyst HX - CAT scan done this admission - Psychiatric Hx Psychophysiologic Disorder: Yes Hx Depression: Yes Hx Substance Use: No - Surgical History Hx Cholecystectomy: Yes (2006) Hx Tubal Ligation: Yes Other/Comment: cervical ca - Anesthesia Hx Anesthesia: Yes Hx Anesthesia Reactions: No - Suicidal Assessment Feels Threatened In Home Enviroment: No Family/Social History - Physician Review Nursing Documentation Reviewed: Yes Family/Social History: Unknown Family HX Smoking Status: Never Smoked Hx Alcohol Use: Yes (occasional) Hx Substance Use: No Hx Substance Use Treatment: No Allergies/Home Meds Allergies/Adverse Reactions: Allergies carisoprodol [From Soma] Allergy (Verified 07/27/17 14:20) ANAPHYLAXIS "swelling and throat closes" hydrocodone bitartrate [From Vicodin] Allergy (Verified 07/27/17 14:20) REDNESS Benadryl [from Soma] Allergy (Uncoded 07/27/17 14:20) RASH Sudafed [from Soma] Allergy (Uncoded 07/27/17 14:20) RASH Review of Systems - Physician Review All systems were reviewed & negative as marked: Yes - Review of Systems Constitutional: Fatigue, Fevers Eyes: Normal ENT: Normal Respiratory: Cough Cardiovascular: Normal Gastrointestinal: Abdominal Pain, Nausea. absent: Constipation, Diarrhea, Vomiting, Hematochezia, Hematemesis Genitourinary Female: Dysuria. absent: Frequency, Hematuria Musculoskeletal: Normal Skin: Normal Neurological: Normal Endocrine: Normal Hemo/Lymphatic: Normal Psychiatric: Normal Physical Exam Vital Signs Reviewed: Yes Vital Signs Temp Pulse Resp BP Pulse Ox 07/27/17 17:19 98.2 F 84 16 118/76 100 07/27/17 14:17 98.6 F 106 H 17 130/88 98 Temperature: Afebrile Blood Pressure: Normal Pulse: Tachycardic Respiratory Rate: Normal Appearance: Positive for: Well-Appearing, Non-Toxic, Comfortable Pain Distress: None Mental Status: Positive for: Alert and Oriented X 3 - Systems Exam Head: Present: Atraumatic, Normocephalic Pupils: Present: PERRL Extroacular Muscles: Present: EOMI Conjunctiva: Present: Normal Mouth: Present: Moist Mucous Membranes Neck: Present: Normal Range of Motion Respiratory/Chest: Present: Clear to Auscultation, Good Air Exchange. No: Respiratory Distress, Accessory Muscle Use, Wheezes, Decreased Breath Sounds, Rales, Retracting, Rhonchi Cardiovascular: Present: Regular Rate and Rhythm, Normal S1, S2. No: Murmurs Abdomen: Present: Tenderness (Suprapubic tenderness), Normal Bowel Sounds. No: Distention, Peritoneal Signs, Rebound, Guarding, McBurney's Point Tender, Rovsing's Sign Present Back: Present: Normal Inspection. No: CVA Tenderness Upper Extremity: Present: Normal Inspection. No: Cyanosis, Edema Lower Extremity: Present: Normal Inspection. No: Edema Neurological: Present: GCS=15, CN II-XII Intact, Speech Normal Skin: Present: Warm, Dry, Normal Color. No: Rashes Psychiatric: Present: Alert, Oriented x 3, Normal Insight, Normal Concentration Medical Decision Making ED Course and Treatment: 07/27/17 20:37 Pt in ED for stated history. Rapid flu was negative. Trace leuk noted in her UA. CXR NAD Pt have Flu like symptoms and was given Tamiflu All result was DW the pt. she was DC home with Augmentin and antitussive. Referred to her PMD. - Lab Interpretations Lab Results: Lab Results 07/27/17 17:00: Urine Color Yellow, Urine Appearance Clear, Urine pH 6.0, Ur Specific [place] 1.025, Urine Protein 30 H, Urine Glucose (UA) Negative, Urine Ketones 15 H, Urine Blood Negative, Urine Nitrate Negative, Urine Bilirubin Negative, Urine Urobilinogen 0.2, Ur Leukocyte Esterase Trace H, Urine RBC 0 - 2 , Urine WBC 2 - 5, Ur Epithelial Cells 10 - 12, Urine Bacteria Trace 07/27/17 15:30: Influenza Typ A,B (EIA) Negative for flu a/b - RAD Interpretation Radiology Orders: 07/27/17 14:23 CHEST TWO VIEWS (PA/LAT) [RAD] Stat 07/27/17 14:40 ABD & PELVIS W/O PO OR IV CONT [CT] Stat - Medication Orders Current Medication Orders: Discontinued Medications Amoxicillin/Clavulanate Potassium (Augmentin 875 Mg-125 Mg Tab) 1 tab PO STAT STA PRN Reason: Protocol Stop: 07/27/17 18:09 Last Admin: 07/27/17 18:35 Dose: 1 tab Ketorolac Tromethamine (Toradol) 60 mg IM STAT STA Stop: 07/27/17 14:41 Last Admin: 07/27/17 14:57 Dose: 60 mg MAR Pain Assessment Document 07/27/17 14:57 HANNAH (Rec: 07/27/17 15:[address] [id number]) Pain Reassessment Is this a pain reassessment? Yes Pain Scale Used Pain Scale Used Numeric Location Pain Location Body Site Abdomen Description Intensity of Pain at present 10 IM Administration Charges Document 07/27/17 14:57 HANNAH (Rec: 07/27/17 15:[address] [id number]) Injection Site MAR Injection Site Left Deltoid Charges for Administration # of IM Administrations 1 Promethazine HCl (Phenergan Syrup) 6.25 mg PO ONCE STA Stop: 07/27/17 14:42 Last Admin: 07/27/17 15:04 Dose: 6.25 mg Disposition/Present on Arrival - Present on Arrival Any Indicators Present on Arrival: No History of DVT/PE: No History of Uncontrolled Diabetes: No Urinary Catheter: No History of Decub. Ulcer: No History Surgical Site Infection Following: None - Disposition Have Diagnosis and Disposition been Completed?: Yes Diagnosis: Upper respiratory infection, Urinary tract infection Disposition: HOME/ ROUTINE Disposition Time: 18:10 Patient Plan: Discharge Condition: STABLE Discharge Instructions (ExitCare): Upper Respiratory Infection (ED) Additional Instructions: Take medication as directed and drink plenty of fluid Follow up with your Doctor Return to ED for any new or worsening symptoms Prescriptions: Amoxicillin/Clavulanate [Augmentin 875 MG-125 MG] 1 tab PO BID #14 tab Famotidine [Pepcid] 40 mg PO DAILY #15 tab Oseltamivir Phosphate [Tamiflu] 75 mg PO BID #10 capsule Promethazine [Phenergan Syrup] 6.25 mg PO Q6 #100 cup Referrals: PCP,NO [Primary Care Provider] - [place] up with primary [facility] [place] - Follow up with primary Forms: [employer] (Honduran)
--- NOTE | 2017-07-27 16:57 | CT ---
PROCEDURE: CT Abdomen and Pelvis without intravenous contrast HISTORY: Flu-like symptoms, gastric and abdominal pain. COMPARISON: 11/13/2016 TECHNIQUE: . Contrast Dose: Unenhanced study. Neither oral nor intravenous contrast administered. Radiation dose: Total exam DLP = 836.84 mGy-cm. This CT exam was performed using one or more of the following dose reduction techniques: Automated exposure control, adjustment of the mA and/or kV according to patient size, and/or use of iterative reconstruction technique. FINDINGS: LOWER THORAX: Unremarkable. LIVER: Unremarkable. No gross lesion or ductal dilatation. GALLBLADDER AND BILE DUCTS: Status post cholecystectomy. No abnormality is seen in the gallbladder fossa. PANCREAS: Unremarkable. No gross lesion or ductal dilatation. SPLEEN: Unremarkable. ADRENALS: Unremarkable. No mass. KIDNEYS AND URETERS: Unremarkable. No hydronephrosis. No solid mass. VASCULATURE: Unremarkable. No aortic aneurysm. BOWEL: Unremarkable. No obstruction. No gross mural thickening. APPENDIX: Unremarkable. Normal appendix. PERITONEUM: Unremarkable. No free fluid. No free air. LYMPH NODES: Unremarkable. No enlarged lymph nodes. BLADDER: Unremarkable. REPRODUCTIVE: Unremarkable. BONES: No acute fracture. OTHER FINDINGS: None. IMPRESSION: No acute findings related to/accounting for the clinical presentation. No significant interval change compared to the prior examination(s).
--- NOTE | 2017-07-27 16:58 | RAD ---
HISTORY: cough COMPARISON: No prior. TECHNIQUE: Chest PA and lateral FINDINGS: LUNGS: No active pulmonary disease. PLEURA: No significant pleural effusion identified. No pneumothorax apparent. CARDIOVASCULAR: Normal. OSSEOUS STRUCTURES: No significant abnormalities. VISUALIZED UPPER ABDOMEN: Normal. OTHER FINDINGS: None. IMPRESSION: No active disease.
[2017-07-27 17:21] VITALS: BP 118/76; PULSE 84; RESP 16; TEMP 98.2; O2SAT 100
[2017-07-27 17:49] LABS: URINE BILIRUBIN NEGATIVE (NEGATIVE); URINE BLOOD NEGATIVE (NEGATIVE); URINE GLUCOSE (UA) NEGATIVE (NEGATIVE); URINE LEUKOCYTE ESTERASE TRACE Leu/uL (NEGATIVE); URINE NITRATE NEGATIVE (NEGATIVE); URINE PROTEIN 30 mg/dL (<30 mg/dL); URINE UROBILINOGEN 0.2 E.U./dL (<1 E.U./dL)
[2017-07-27 17:52] LABS: URINE APPEARANCE CLEAR (CLEAR); URINE COLOR YELLOW (YELLOW)
[2017-07-27 18:05] LABS: URINE RBC 0 - 2 /hpf (0-2)
[2017-07-27 18:06] LABS: URINE BACTERIA TRACE (NEG)
[2017-07-27] MEDS ORDERED: Amoxicillin-Clav 875-125 mg Tab PO STA (18:08)
== END 2017-07-27 18:38 | disposition home or self-care (01) ==
LOC: ED 13:48
DX: J06.9 Acute upper respiratory infection, unspecified (principal); N39.0 Urinary tract infection, site not specified
CPT/HCPCS: 71046; 74176; 81001; 87804; 96372; 99283; J1885

== ENCOUNTER 2017-08-25 16:11 | Emergency (ER) | payer MEDICAID ==
[2017-08-25 16:11] VITALS: BMI 29.1
--- NOTE | 2017-08-25 16:19 | ED PDOC ---
Arrival/HPI - General Time Seen by Provider: 08/25/17 16:16 Historian: Patient - History of Present Illness Narrative History of Present Illness (Text): 08/25/17 16:18 42 y/o female, pmh including renal stone/constipation, allergic to hydrocodone/ sudafed/benadryl, c/o abdominal pain x 2 days. Pt. stated that she has generalized abdominal pain for the past 2 days, nausea with vomiting, no diarrhea, stated that she has history of ovarian cyst, no numbness or tinging, no night sweat, no chest pain or shortness of breath, no other medical or psychological complaints. Past Medical History - Provider Review Nursing Documentation Reviewed: Yes - Infectious Disease Hx of Infectious Diseases: None - Tetanus Immunization Tetanus Immunization: Unknown - Cardiac Hx Cardiac Disorders: Yes Hx Angina: Yes (once, was given sublingual nitro x2 which helped her, EKG normal .) - Pulmonary Hx Asthma: Yes - Neurological Hx Neurological Disorder: No - HEENT Hx HEENT Disorder: No - Renal Hx Renal Disorder: Yes Hx Kidney Stones: Yes - Endocrine/Metabolic Hx Endocrine Disorders: No - Hematological/Oncological Hx Blood Disorders: Yes Hx Cancer: Yes (stage I cervial cancer - ADDENDUM BY [employer] _ cervical 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 ) Other/Comment: Does not appear to be cervical CA but dysplasia - Integumentary Hx Dermatological Disorder: No Hx Basal Cell Carcinoma: No - Musculoskeletal/Rheumatological Hx Falls: No - Gastrointestinal Hx Gastrointestinal Disorders: No - Genitourinary/Gynecological Hx Genitourinary Disorders: Yes Other/Comment: ovarian cyst HX - CAT scan done this admission - Psychiatric Hx Psychophysiologic Disorder: Yes Hx Depression: Yes Hx Substance Use: No - Surgical History Hx Cholecystectomy: Yes (2006) Hx Tubal Ligation: Yes Other/Comment: cervical ca - Anesthesia Hx Anesthesia: Yes Hx Anesthesia Reactions: No - Suicidal Assessment Feels Threatened In Home Enviroment: No Family/Social History - Physician Review Nursing Documentation Reviewed: Yes Family/Social History: Unknown Family HX Smoking Status: Never Smoked Hx Alcohol Use: Yes (occasional) Hx Substance Use: No Hx Substance Use Treatment: No Allergies/Home Meds Allergies/Adverse Reactions: Allergies carisoprodol [From Soma] Allergy (Verified 08/25/17 16:21) ANAPHYLAXIS "swelling and throat closes" hydrocodone bitartrate [From Vicodin] Allergy (Verified 08/25/17 16:21) REDNESS Benadryl [from Soma] Allergy (Uncoded 08/25/17 16:21) RASH Sudafed [from Soma] Allergy (Uncoded 08/25/17 16:21) RASH Review of Systems - Review of Systems Constitutional: absent: Fatigue, Fevers Eyes: absent: Vision Changes ENT: absent: Hearing Changes Respiratory: absent: SOB, Cough Cardiovascular: absent: Chest Pain Gastrointestinal: Abdominal Pain, Nausea, Vomiting. absent: Diarrhea Skin: absent: Rash, Pruritis Neurological: absent: Headache, Dizziness Psychiatric: absent: Anxiety, Depression, Suicidal Ideation Physical Exam Vital Signs Reviewed: Yes Vital Signs Temp Pulse Resp BP Pulse Ox 08/25/17 18:11 78 18 138/86 99 08/25/17 16:11 98.8 F 81 18 144/74 98 Temperature: Afebrile Blood Pressure: Normal Pulse: Regular Respiratory Rate: Normal Appearance: Positive for: Well-Appearing, Non-Toxic, Comfortable Pain Distress: Moderate Mental Status: Positive for: Alert and Oriented X 3 - Systems Exam Head: Present: Atraumatic, Normocephalic Pupils: Present: PERRL Extroacular Muscles: Present: EOMI Conjunctiva: Present: Normal Mouth: Present: Moist Mucous Membranes Neck: Present: Normal Range of Motion Respiratory/Chest: Present: Clear to Auscultation, Good Air Exchange. No: Respiratory Distress, Accessory Muscle Use Cardiovascular: Present: Regular Rate and Rhythm, Normal S1, S2. No: Murmurs Abdomen: Present: Tenderness (+RLQ tenderness), Normal Bowel Sounds. No: Distention, Peritoneal Signs, Rebound, Guarding Back: Present: Normal Inspection. No: CVA Tenderness, Midline Tenderness, Paraspinal Tenderness Upper Extremity: Present: Normal Inspection. No: Cyanosis, Edema Lower Extremity: Present: Normal Inspection. No: Edema Neurological: Present: GCS=15, CN II-XII Intact, Speech Normal, Motor Func Grossly Intact, Gait Normal, Memory Normal Skin: Present: Warm, Dry, Normal Color. No: Rashes Psychiatric: Present: Alert, Oriented x 3, Normal Insight, Normal Concentration Medical Decision Making ED Course and Treatment: 08/25/17 16:30 -labs/lipase/ua -CT abdomen and pelvis -Transvaginal sonogram -IVF/pepcid/zofran/toradol -observe and reassess 08/25/17 20:04 -Urine hcg is negative -Transvaginal sonogram: Thickened endometrium, recommend followup in 4-6 weeks at a different phase in the patient's cycle. Small lobulated right ovarian cyst, probable involuting follicle. -CT abdomen and pelvis: Approximately 2 cm right adnexal cyst. Further evaluation can be performed with dedicated ultrasound. Small amount of free fluid in the cul-de-sac, may be physiologic. Status post cholecystectomy with biliary ductal dilatation, can be seen status post cholecystectomy. Subcentimeter hypoattenuating focus in the right lobe of the liver, incompletely evaluated. Small fat-containing umbilical hernia. Mild degenerative changes in the lumbosacral spine, most notable at L4-S1. -Labs show no acute findings except wbc 13.4 -Pain controlled with medications given in the ER, all lab results discussed with the patient including the radiology study which she should get GI/obgyn and pmd follow up with in 2 days. -Pt. feels better, request more pain med prior to discharged, stated that she takes percocet at home, will give 1 tablet of percocet. -Discharge home with naproxen, pepcid, zofran, bed rest, stay hydrated, follow up with your own pmd and GI/obgyn/general surgey within 2 days, return to the ER for any new or worsening signs or symptoms. - Lab Interpretations Lab Results: 08/25/17 16:50 08/25/17 16:50 Lab Results 08/25/17 17:00: Urine Color Yellow, Urine Appearance Clear, Urine pH 6.0, Ur Specific [place] 1.025, Urine Protein Negative, Urine Glucose (UA) Negative, Urine Ketones Negative, Urine Blood Small H, Urine Nitrate Negative, Urine Bilirubin Negative, Urine Urobilinogen 0.2, Ur Leukocyte Esterase Negative, Urine RBC 1 - 3, Urine WBC 0 - 2, Ur Epithelial Cells 6 - 8, Calcium Oxalate Crystal Occ, Urine Bacteria Many 08/25/17 16:50: WBC 13.4 H D, RBC 4.65, Hgb 13.4, Hct 40.7, MCV 87.5, MCH 28.8, MCHC 32.9, RDW 13.1, Plt Count 236, MPV 9.4, Gran % 81.7 H, Lymph % (Auto) 10.1 L, Swain % (Auto) 7.6 H, Eos % (Auto) 0.5 L, Baso % (Auto) 0.1, Gran # 10.90 H, Lymph # (Auto) 1.4, Swain # (Auto) 1.0 H, Eos # (Auto) 0.1, Baso # (Auto) 0.02 08/25/17 16:50: Sodium 139, Potassium 3.7, Chloride 105, Carbon Dioxide 23, Anion Gap 15, BUN 5 L, Creatinine 0.6 L, Est GFR ( Amer) > 60, Est GFR ( Non-Af Amer) > 60, Random Glucose 88, Calcium 9.2, Total Bilirubin 0.4, AST 21, ALT 33, Alkaline Phosphatase 77, Total Protein 7.5, Albumin 4.0, Globulin 3.5, Albumin/Globulin Ratio 1.2, Lipase 46 - RAD Interpretation Radiology Orders: 08/25/17 16:26 ABD & PELVIS IV CONTRAST ONLY [CT] Stat TRANSVAGINAL [US] Stat Transvaginal sonogram: FINDINGS: Uterus/cervix: Uterus measures 9.3 x 5.5 x 7.1 cm. Endometrium measures 2 cm in thickness. No myometrial mass. Right ovary: Right ovary measures 2.4 x 2.9 x 2.1 cm. Slightly lobulated cyst of about 1.2 x 1 cm. Normal blood flow. Left ovary: Left ovary is not visualized. Free fluid: Small amount of free fluid in cul-de-sac. Bladder: Empty bladder which cannot be evaluated with this probe. IMPRESSION: 1. Thickened endometrium, recommend followup in 4-6 weeks at a different phase in the patient's cycle. 2. Small lobulated right ovarian cyst, probable involuting follicle. CT abdomen and pelvis with IV contrast: Lower thorax: No acute findings. ABDOMEN: Liver: Subcentimeter hypoattenuating focus in the right lobe of the liver, incompletely evaluated. Gallbladder and bile ducts: Status post cholecystectomy with biliary ductal dilatation. Pancreas: No acute abnormality as visualized. Spleen: No splenomegaly. Adrenals: No acute abnormality as visualized. Kidneys and ureters: Symmetric emhancement. No hydronephrosis. Stomach and bowel: Limited evaluation without enteric contrast. No obstruction. No definitive focus of inflammation. Appendix: No findings to suggest acute appendicitis. PELVIS: Bladder: No acute abnormality as visualized. Reproductive: Approximately 2 cm right adnexal cyst. Further evaluation can be performed with dedicated ultrasound. ABDOMEN and PELVIS: Intraperitoneal space: Fluid in the cul-de-sac. No free air. Bones: Mild degenerative changes in the lumbosacral spine, most notable at L4- S1. Soft tissues: Small fat-containing umbilical hernia. Vasculature: No abdominal aortic aneurysm. Lymph nodes: No acute abnormality as visualized. IMPRESSION: Approximately 2 cm right adnexal cyst. Further evaluation can be performed with dedicated ultrasound. Small amount of free fluid in the cul-de-sac, may be physiologic.. Status post cholecystectomy with biliary ductal dilatation, can be seen status post cholecystectomy.. Subcentimeter hypoattenuating focus in the right lobe of the liver, incompletely evaluated. Small fat-containing umbilical hernia. Mild degenerative changes in the lumbosacral spine, most notable at L4-S1. Thank you for allowing us to participate in the care of your patient. Dictated and Authenticated by: Alice Mobley MD 08/25/2017 8:01 PM Eastern Time ([place] & [place]) Cloth Cutting Inspector: Radiologist - Medication Orders Current Medication Orders: Sodium Chloride (Sodium Chloride 0.9%) 1,000 mls @ 250 mls/hr IV .Q4H [facility] Last Admin: 08/25/17 17:28 Dose: 250 mls/hr eMAR Start Stop Document 08/25/17 17:28 EWO (Rec: 08/25/17 17:29 EWO [id number]) Intravenous Solution Start Date 08/25/17 Start Time 17:29 Discontinued Medications Famotidine (Pepcid) 20 mg PO STAT STA Stop: 08/25/17 16:27 Last Admin: 08/25/17 17:28 Dose: 20 mg Ketorolac Tromethamine (Toradol) 30 mg IVP STAT STA Stop: 08/25/17 16:27 Last Admin: 08/25/17 17:28 Dose: 30 mg MAR Pain Assessment Document 08/25/17 17:28 EWO (Rec: 08/25/17 17:28 [id number]) Pain Reassessment Is this a pain reassessment? No Sleep Is patient sleeping during reassessment? Yes Pain Scale Used Pain Scale Used Numeric Location Pain Location Body Site Abdomen Description Description Constant Intensity of Pain at present 7 Pain Behavior Moaning IVP Administration Document 08/25/17 17:28 EWO (Rec: 08/25/17 17:28 EWO [id number]) Charges for Administration # of IVP Administrations 1 Ondansetron HCl (Zofran Inj) 4 mg IVP STAT STA Stop: 08/25/17 16:27 Last Admin: 08/25/17 17:28 Dose: 4 mg IVP Administration Document 08/25/17 17:28 EWO (Rec: 08/25/17 17:28 EWO [id number]) Charges for Administration # of IVP Administrations 1 - PA / LENDING ACTIVITIES SUPERVISOR / Resident Statement MD/ has reviewed & agrees with the documentation as recorded. Disposition/Present on Arrival - Present on Arrival Any Indicators Present on Arrival: No History of DVT/PE: No History of Uncontrolled Diabetes: No Urinary Catheter: No History of Decub. Ulcer: No History Surgical Site Infection Following: None - Disposition Have Diagnosis and Disposition been Completed?: Yes Diagnosis: Abdominal pain, Ovarian cyst, Umbilical hernia, Degenerative disc disease, lumbar Disposition: HOME/ ROUTINE Disposition Time: 16:30 Patient Plan: Discharge Patient Problems: Current Active Problems Problem Status Onset Abdominal pain Acute Ovarian cyst Acute Umbilical hernia Acute Degenerative disc disease, lumbar Acute Condition: IMPROVED Additional Instructions: Discharge home with naproxen, pepcid, zofran, bed rest, stay hydrated, follow up with your own pmd and GI/obgyn/general surgey within 2 days, return to the ER for any new or worsening signs or symptoms. Prescriptions: Famotidine [Pepcid] 20 mg PO BID #28 tab Naproxen 500 mg PO BID PRN #28 tablet PRN Reason: Other Ondansetron ODT [Zofran ODT] 4 mg PO TID PRN #15 odt PRN Reason: Other Referrals: [facility] [place] - Follow up with primary Celia Joyce MD [Staff Provider] - Follow up with primary Reji Thurman MD [Staff Provider] - Follow up with primary Brian Huizar MD [Staff Provider] - Follow up with primary PCP,NO [Primary Care Provider] - Follow up with primary Ifeoma Del Angel MD [Medical Doctor] - Follow up with primary Cruz Jimenez MD [Staff Provider] - Follow up with primary Forms: WORK NOTE
[2017-08-25] MEDS ORDERED: Sodium Chloride 0.9% 1,000 ML IV SCH (16:30)
[2017-08-25] MEDS ORDERED: Iohexol 350 MG/100 ML VIAL ONE (17:26)
--- NOTE | 2017-08-25 17:28 | US ---
EXAM: US Pelvis, Transvaginal EXAM DATE/TIME: 08/25/2017 4:26 PM CLINICAL HISTORY: 42 years old, female; Pain; Pelvic pain; Additional info: Ovarian cyst? TECHNIQUE: Real-time transvaginal pelvic ultrasound (complete) with image documentation. Transvaginal imaging was used for better evaluation of the endometrium and adnexa. COMPARISON: US - TRANSVAGINAL 2016-11-13 20:07 FINDINGS: Uterus/cervix: Uterus measures 9.3 x 5.5 x 7.1 cm. Endometrium measures 2 cm in thickness. No myometrial mass. Right ovary: Right ovary measures 2.4 x 2.9 x 2.1 cm. Slightly lobulated cyst of about 1.2 x 1 cm. Normal blood flow. Left ovary: Left ovary is not visualized. Free fluid: Small amount of free fluid in cul-de-sac. Bladder: Empty bladder which cannot be evaluated with this probe. IMPRESSION: 1. Thickened endometrium, recommend followup in 4-6 weeks at a different phase in the patient's cycle. 2. Small lobulated right ovarian cyst, probable involuting follicle.
[2017-08-25 17:31] LABS: BASO # 0.02 K/mm3 (0.0-2.0); BASO % 0.1 % (0.0-3.0); EOS # 0.1 (0.0-0.7); EOS % 0.5 % (1.5-5.0); GRAN # 10.9 (1.4-6.5); GRAN % 81.7 % (50.0-68.0); HEMOGLOBIN 13.4 g/dL (12.0-16.0); LYMPH # 1.4 (1.2-3.4); LYMPH % 10.1 % (22.0-35.0); MEAN CELL VOLUME 87.5 fl (80.0-105.0); MEAN CORPUSCULAR HEMOGLOBIN 28.8 pg (25.0-35.0); MEAN CORPUSCULAR HGB CONC 32.9 g/dl (31.0-37.0); MEAN PLATELET VOLUME 9.4 fl (7.0-11.0); MONO % 7.6 % (1.0-6.0); RBC 4.65 10^6/uL (3.5-6.1); RED CELL DISTRIBUTION WIDTH 13.1 % (11.5-14.5); WHITE BLOOD COUNT 13.4 10^3/ul (4.5-11.0)
[2017-08-25 17:33] LABS: URINE BILIRUBIN NEGATIVE (NEGATIVE); URINE BLOOD SMALL (NEGATIVE); URINE GLUCOSE (UA) NEGATIVE (NEGATIVE); URINE LEUKOCYTE ESTERASE NEGATIVE Leu/uL (NEGATIVE); URINE PROTEIN NEGATIVE mg/dL (<30 mg/dL); URINE UROBILINOGEN 0.2 E.U./dL (<1 E.U./dL)
[2017-08-25 17:40] LABS: URINE APPEARANCE CLEAR (CLEAR); URINE COLOR YELLOW (YELLOW)
[2017-08-25 17:53] LABS: ALB/GLOB RATIO 1.2 (1.1-1.8); ALT/SGPT 33 U/L (7-56); AST/SGOT 21 U/L (14-36); BLOOD UREA NITROGEN 5 mg/dL (7-21); CALCIUM 9.2 mg/dL (8.4-10.5); GFR AFRICAN-AMERICAN > 60; GFR NON-AFRICAN AMERICAN > 60; LIPASE 46 U/L (23-300)
[2017-08-25 17:58] LABS: URINE BACTERIA MANY (NEG); URINE CALCIUM OXALATE CRYSTALS OCC /hpf; URINE WBC 0 - 2 /hpf (0-6)
[2017-08-25 18:08] VITALS: RESP 18; TEMP 98.8
--- NOTE | 2017-08-25 20:02 | CT ---
EXAM: CT Abdomen and Pelvis With Intravenous Contrast CLINICAL HISTORY: 42 years old, female; Pain; Abdominal pain; Acute; Additional info: Generalized abdominal pain? ? TECHNIQUE: Axial computed tomography images of the abdomen and pelvis with intravenous contrast. All CT scans at this facility use one or more dose reduction techniques, viz.: automated exposure control; ma/kV adjustment per patient size (including targeted exams where dose is matched to indication; i.e. head); or iterative reconstruction technique. Coronal and sagittal reformatted images were created and reviewed. CONTRAST: 100 mL of OMNI 350 administered intravenously. COMPARISON: CT - ABD PELVIS W/O PO OR IV CONT 2017-07-27 15:30 FINDINGS: Lower thorax: No acute findings. ABDOMEN: Liver: Subcentimeter hypoattenuating focus in the right lobe of the liver, incompletely evaluated. Gallbladder and bile ducts: Status post cholecystectomy with biliary ductal dilatation. Pancreas: No acute abnormality as visualized. Spleen: No splenomegaly. Adrenals: No acute abnormality as visualized. Kidneys and ureters: Symmetric emhancement. No hydronephrosis. Stomach and bowel: Limited evaluation without enteric contrast. No obstruction. No definitive focus of inflammation. Appendix: No findings to suggest acute appendicitis. PELVIS: Bladder: No acute abnormality as visualized. Reproductive: Approximately 2 cm right adnexal cyst. Further evaluation can be performed with dedicated ultrasound. ABDOMEN and PELVIS: Intraperitoneal space: Fluid in the cul-de-sac. No free air. Bones: Mild degenerative changes in the lumbosacral spine, most notable at L4-S1. Soft tissues: Small fat-containing umbilical hernia. Vasculature: No abdominal aortic aneurysm. Lymph nodes: No acute abnormality as visualized. IMPRESSION: Approximately 2 cm right adnexal cyst. Further evaluation can be performed with dedicated ultrasound. Small amount of free fluid in the cul-de-sac, may be physiologic.. Status post cholecystectomy with biliary ductal dilatation, can be seen status post cholecystectomy.. Subcentimeter hypoattenuating focus in the right lobe of the liver, incompletely evaluated. Small fat-containing umbilical hernia. Mild degenerative changes in the lumbosacral spine, most notable at L4-S1.
[2017-08-25] MEDS ORDERED: Oxycodone/Acetaminophen 5/325 mg Tab PO STA (20:13)
[2017-08-25] MEDS ORDERED: Oxycodone/Acetaminophen 5/325 mg Tab ONE (20:19)
[2017-08-25 20:27] VITALS: BP 136/74; PULSE 72; O2SAT 100
== END 2017-08-25 20:26 | disposition home or self-care (01) ==
LOC: ED 16:11
DX: N83.201 Unspecified ovarian cyst, right side (principal); K42.9 Umbilical hernia without obstruction or gangrene; M47.896 Other spondylosis, lumbar region; R10.9 Unspecified abdominal pain
CPT/HCPCS: 74177; 76830; 80053; 81001; 83690; 85025; 96374; 96375; 99285; J1885; J2405; J7040; Q9967

== ENCOUNTER 2018-09-16 13:22 | Emergency (ER) | payer MEDICAID ==
[2018-09-16 13:28] VITALS: RESP 18; TEMP 98.4; BMI 30.4
[2018-09-16] MEDS ORDERED: Sodium Chloride 0.9% 1,000 ML IV SCH (14:15)
--- NOTE | 2018-09-16 14:32 | ED PDOC ---
Arrival/HPI - General Chief Complaint: Abdominal Pain Time Seen by Provider: 09/16/18 13:25 Historian: Patient - History of Present Illness Narrative History of Present Illness (Text): 09/16/18 14:28 43 F with pmh of Cholecystectomy and tubial ligation presents with cc of left sided abd pain radiating to back x3days. Patient reports the pain is exacerbated while she is laying down also endorse previously taking an advil which failed to relieve any pain. Patient recalls having a similar abd pain in the past yielding her having a kidney stone and ovarian cyst. Patient denies any fevers, chills, headache, dizziness, chest pain, shortness of breath, dyspnea on exertion, cough, diaphoresis, nausea, vomiting, diarrhea, back pain, neck pain, or any other complaint. Time/Duration: < week Symptom Onset: Gradual Symptom Course: Unchanged Activities at Onset: Light Context: Home Past Medical History - Provider Review Nursing Documentation Reviewed: Yes - Infectious Disease Hx of Infectious Diseases: None - Tetanus Immunization Tetanus Immunization: Unknown - Cardiac Hx Cardiac Disorders: Yes Hx Angina: Yes (once, was given sublingual nitro x2 which helped her, EKG normal .) - Pulmonary Hx Respiratory Disorders: Yes Hx Asthma: Yes - Neurological Hx Neurological Disorder: No - HEENT Hx HEENT Disorder: No - Renal Hx Renal Disorder: Yes Hx Kidney Stones: Yes - Endocrine/Metabolic Hx Endocrine Disorders: No - Hematological/Oncological Hx Blood Disorders: Yes Hx Cancer: Yes (stage I cervial cancer - ADDENDUM BY [employer] _ cervical 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 ) Other/Comment: Does not appear to be cervical CA but dysplasia - Integumentary Hx Dermatological Disorder: No Hx Basal Cell Carcinoma: No - Musculoskeletal/Rheumatological Hx Musculoskeletal Disorders: No - Gastrointestinal Hx Gastrointestinal Disorders: No - Genitourinary/Gynecological Hx Genitourinary Disorders: Yes Other/Comment: ovarian cyst HX - CAT scan done this admission - Psychiatric Hx Depression: Yes Hx Substance Use: No - Surgical History Hx Cholecystectomy: Yes (2006) - Anesthesia Hx Anesthesia: Yes Hx Anesthesia Reactions: No - Suicidal Assessment Feels Threatened In Home Enviroment: No Family/Social History - Physician Review Nursing Documentation Reviewed: Yes Family/Social History: Unknown Family HX Smoking Status: Never Smoked Hx Alcohol Use: Yes (occasional) Hx Substance Use: No Hx Substance Use Treatment: No Allergies/Home Meds Allergies/Adverse Reactions: Allergies carisoprodol [From Soma] Allergy (Verified 08/20/18 13:28) ANAPHYLAXIS "swelling and throat closes" hydrocodone bitartrate [From Vicodin] Allergy (Verified 08/20/18 13:28) REDNESS Sudafed [from Soma] Allergy (Mild, Uncoded 08/20/18 13:28) RASH Benadryl [from Soma] Allergy (Uncoded 08/20/18 13:28) RASH Review of Systems - Physician Review All systems were reviewed & negative as marked: Yes - Review of Systems Constitutional: Normal Eyes: Normal ENT: Normal Respiratory: Normal Cardiovascular: Normal Gastrointestinal: Abdominal Pain Genitourinary Female: Normal Musculoskeletal: Normal Skin: Normal Neurological: Normal Endocrine: Normal Hemo/Lymphatic: Normal Psychiatric: Normal Physical Exam - Physical Exam Narrative Physical Exam (Text): 09/16/18 14:33 Gen: VS reviewed, alert, well developed, well nourished, nontoxic, mild distress Eye: EOMI, PERRL ENT: normal pharynx. Neck: no JVD, supple, no adenopathy CV: regular rate, regular rhythm, no rubs,no murmur, S1, S2 Pulm: no distress, clear to auscultation, no wheeze, no rhonchi, breath sounds equal, no rales Abd: Left abdominal tenderness with guarding. Left flank tenderness w/CVA tendermess. no rebound, no rigidity Ext: no edema Skin: good color, no rash, no cyanosis Psych: responds appropriately to questions, normal affect Neuro: oriented x3, CN2-12 intact grossly, motor intact, sensation intact Vital Signs Temp Pulse Resp BP Pulse Ox 09/16/18 13:28 98.4 F 77 18 146/90 100 Medical Decision Making ED Course and Treatment: 09/16/18 14:32 Impression: 43 F with cc of left sided abd pain radiating to back x3days Plan: -- Labs -- CT Abd & Pelvis -- Toradol -- UA -- Reassess and disposition Prior Visits: Notes and results from previous visits were reviewed. Progress Notes: 09/16/18 18:28 patient feels well and ready to go home. patient was seen for left flank pain. CT was done to rule out renal colic, US was done to rule out acute pelvic pathology such as torsion. Being that the pain is left sided only I doubt that the pain is related to ovarian cysts seen on US. It is was discussed that the pain could be radicular and for the patient to follow up with her pcp. Stable for dc. - RAD Interpretation Narrative RAD Interpretations (Text): 09/16/18 15:50 CT Abdomen and Pelvis without intravenous contrast -- Unremarkable examination. No evidence of urinary calculus or urinary tract obstruction 09/16/18 18:27 Transvaginal US: Bilateral ovarian follicles/cysts. 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 I have reviewed the chart and agree that the record accurately reflects my personal performance of the history, physical exam, medical decision making, and the department course for this patient. I have also personally directed, reviewed, and agree with the discharge instructions and disposition. Disposition/Present on Arrival - Present on Arrival Any Indicators Present on Arrival: No History of DVT/PE: No History of Uncontrolled Diabetes: No Urinary Catheter: No History of Decub. Ulcer: No History Surgical Site Infection Following: None - Disposition Have Diagnosis and Disposition been Completed?: Yes Diagnosis: Left flank pain Disposition: HOME/ ROUTINE Disposition Time: 18:31 Patient Plan: Discharge Condition: STABLE Discharge Instructions (ExitCare): Flank Pain (DC) Additional Instructions: return for any new or worsening symptoms. Prescriptions: Ibuprofen [Motrin Tab] 600 mg PO QID #30 tab Lidocaine 5% [Lidoderm] 1 ea TD Q12H #14 patch Sennosides/Docusate Sodium [Colace 2-in-1 Tablet] 2 each PO BID 7 Days #14 tablet Referrals: Pierre Mitchell MD [Primary Care Provider] - Follow up with primary Forms: [facility] ([place]), WORK NOTE
[2018-09-16 14:48] LABS: URINE BILIRUBIN NEGATIVE (NEGATIVE); URINE BLOOD NEGATIVE (NEGATIVE); URINE GLUCOSE (UA) NEGATIVE (NEGATIVE); URINE LEUKOCYTE ESTERASE NEGATIVE Leu/uL (NEGATIVE); URINE PROTEIN NEGATIVE mg/dL (<30 mg/dL); URINE UROBILINOGEN 0.2 E.U./dL (<1 E.U./dL)
[2018-09-16 14:53] LABS: BASO # 0.02 K/mm3 (0.0-2.0); BASO % 0.3 % (0.0-3.0); EOS # 0.1 (0.0-0.7); EOS % 1.6 % (1.5-5.0); HEMOGLOBIN 12.2 g/dL (12.0-16.0); LYMPH # 2.3 (1.2-3.4); LYMPH % 33.1 % (22.0-35.0); MEAN CELL VOLUME 86.7 fl (80.0-105.0); MEAN CORPUSCULAR HEMOGLOBIN 28.4 pg (25.0-35.0); MEAN CORPUSCULAR HGB CONC 32.7 g/dl (31.0-37.0); MEAN PLATELET VOLUME 9.4 fl (7.0-11.0); MONO # 0.6 (0.1-0.6); MONO % 8.5 % (1.0-6.0); RBC 4.3 10^6/uL (3.5-6.1); RED CELL DISTRIBUTION WIDTH 13.3 % (11.5-14.5); WHITE BLOOD COUNT 6.8 10^3/uL (4.5-11.0)
[2018-09-16 14:58] LABS: ALB/GLOB RATIO 1.2 (1.1-1.8); ALBUMIN 3.8 g/dL (3.0-4.8); ALT/SGPT 23 U/L (7-56); AST/SGOT 30 U/L (14-36); BLOOD UREA NITROGEN 11 mg/dL (7-21); CALCIUM 8.9 mg/dL (8.4-10.5); GFR NON-AFRICAN AMERICAN > 60
[2018-09-16 15:11] LABS: URINE APPEARANCE CLEAR (CLEAR); URINE COLOR YELLOW (YELLOW)
[2018-09-16] MEDS ORDERED: Morphine 4 mg/ml ISec IVP STA (15:21)
--- NOTE | 2018-09-16 15:46 | CT ---
Date of service: 09/16/2018 PROCEDURE: CT Abdomen and Pelvis without intravenous contrast HISTORY: left flank pain,hx stones and ovary cyst COMPARISON: 08/25/2017 TECHNIQUE: Without contrast.. Contrast dose: 0 Radiation dose: Total exam DLP = 1040.9 mGy-cm. This CT exam was performed using one or more of the following dose reduction techniques: Automated exposure control, adjustment of the mA and/or kV according to patient size, and/or use of iterative reconstruction technique. FINDINGS: LOWER THORAX: Unremarkable. LIVER: Unremarkable. No gross lesion or ductal dilatation. GALLBLADDER AND BILE DUCTS: Cholecystectomy PANCREAS: Unremarkable. No gross lesion or ductal dilatation. SPLEEN: Unremarkable. ADRENALS: Unremarkable. No mass. KIDNEYS AND URETERS: Unremarkable. No hydronephrosis. No solid mass. No renal or ureteral calculus. VASCULATURE: Unremarkable. No aortic aneurysm. No aortic atherosclerotic calcification or mural plaque present. BOWEL: Unremarkable. No obstruction. No gross mural thickening. APPENDIX: Unremarkable. Normal appendix. PERITONEUM: Unremarkable. No free fluid. No free air. LYMPH NODES: Unremarkable. No enlarged lymph nodes. BLADDER: Unremarkable. REPRODUCTIVE: Unremarkable uterus BONES: No acute fracture. OTHER FINDINGS: None. IMPRESSION: Unremarkable examination. No evidence of urinary calculus or urinary tract obstruction. To
[2018-09-16 17:30] LABS: BARBITURATES, UR NEGATIVE (NEGATIVE); BENZODIAZEPINES, UR NEGATIVE (NEGATIVE); OPIATES, UR POSITIVE (NEGATIVE); PHENCYCLIDINE, UR NEGATIVE (NEGATIVE)
--- NOTE | 2018-09-16 18:15 | US ---
Date of service: 09/16/2018 HISTORY: left pelvic pain, torsion COMPARISON: Pelvic ultrasound performed 08/25/17 TECHNIQUE: Real-time transabdominal pelvic ultrasound was performed. In addition a transvaginal pelvic ultrasound was necessary to better depict pelvic anatomy. FINDINGS: UTERUS: Measures 9.0 x 5.5 x 6.5 cm. Anteverted. Suspect tiny myometrial cysts. ENDOMETRIUM: Measures 1.8 cm in diameter. CERVIX: Cervix length measures approximately 3.6 cm RIGHT OVARY: Measures 2.6 x 1.8 x 2.1 cm. Blood flow is demonstrated. 0.9 x 0.8 x 0.9 cm follicle/cyst. LEFT OVARY: Measures 3.2 x 2.1 x 2.3 cm. Blood flow is demonstrated. 1.7 x 1.9 x 1.6 cm follicle/cyst. FREE FLUID: No significant free fluid noted. OTHER FINDINGS: None. IMPRESSION: Bilateral ovarian follicles/cysts. Suspect tiny myometrial cysts.
[2018-09-16 18:49] VITALS: BP 126/83; PULSE 67; O2SAT 99
== END 2018-09-16 18:48 | disposition home or self-care (01) ==
LOC: ED 13:22
DX: R10.9 Unspecified abdominal pain (principal); Z85.41 Personal history of malignant neoplasm of cervix uteri; Z90.49 Acquired absence of other specified parts of digestive tract
CPT/HCPCS: 74176; 76830; 80053; 80324; 80345; 80346; 80349; 80353; 80358; 80361; 81003; 81025; 83992; 85025; 87086; 96361; 96374; 96375; 99284; J1885; J2270; J7030